=== PATIENT | female | born 1950 | race Caucasian/White ===

== ENCOUNTER 2021-03-28 08:02 | Outpatient (CLI) | payer BC | END 2021-03-28 08:03 | disposition critical access hospital (66) | LOC: EMS 08:02 | DX: R55 Syncope and collapse (principal) | CPT/HCPCS: A0425; A0427 ==

== ENCOUNTER 2021-03-28 08:03 | Emergency (ER) | payer BC ==
[2021-03-28] MEDS ORDERED: SODIUM CHLORIDE 0.9% 1,000 ML IV STA (08:18)
--- NOTE | 2021-03-28 08:20 | ED Physician Documentation ---
PD HPI SYNCOPE - Stated complaint Stated Complaint: GLF - History obtained from History obtained from: Patient, Family ( gave info through EMS.), EMS - History of Present Illness Witnessed: Witnessed (patient felt okay getting up this morning and went to bathroom. She got lightheaded when standing up, with nausea, and fainted, falling face downward. Out for about 20 seconds, per report to EMS. Then awake and back to baseline alertness. No focal weakness. No chest pain.) Timing - onset: How many minutes ago (30), Today Duration: Seconds (20) Preceding symptoms: Nausea / vomiting (nausea without vomiting.), Light headed, Other (has had some diarrhea for about 2 weeks since starting Tumeric and restartin Zoloft. Has tapered but persisted loose to watery. No melena. She states she did not feel "quite right" last evening, with just some malaise.). No: Headache, Chest pain Associated symptoms: No: Headache, Abdominal pain Contributing factors: Just stood up (from toilet) Injury occurred: Head injury (right cheek tender). No: Neck injury, Bit tongue Treatment [employer]: Fluids Similar symptoms before: Has not had sx before Recently seen: Not recently seen Review of Systems Constitutional: denies: Fever, Chills Nose: denies: Rhinorrhea / runny nose, Congestion Throat: denies: Sore throat Cardiac: denies: Chest pain / pressure Respiratory: denies: Cough GI: reports: Diarrhea (for 2 weeks). denies: Abdominal Pain, Nausea, Vomiting, Bloody / black stool Skin: denies: Abrasion (s), Laceration (s) Neurologic: denies: Generalized weakness, Focal weakness, Numbness PD PAST MEDICAL HISTORY - Past Medical History Cardiovascular: None Respiratory: None Neuro: None Endocrine/Autoimmune: None - Present Medications Home Medications: Ambulatory Orders Medication Instructions Recorded Confirmed L.acid/L.casei/B.bif/B.nish/Fos 1 each PO BID 7 Days #14 cap 03/28/21 [Probiotic Blend Capsule] Loperamide [Imodium] 2 mg PO QID PRN #16 cap 03/28/21 Sertraline [Zoloft] 25 mg PO DAILY 03/28/21 03/28/21 - Allergies Allergies/Adverse Reactions: Allergies Allergy/AdvReac Type Severity Reaction Status Date / Time No Known Drug Allergies Allergy Verified 03/28/21 08:19 - Living Situation Living Situation: reports: With spouse/s.o. Living Arrangement: reports: At home (recently moved to [facility] in past couple months. ) - Social History Does the pt smoke?: No Does the pt drink ETOH?: No Does the pt have substance abuse?: No - Family History Family history: reports: CAD. denies: Sudden PD ED PE NORMAL - Vitals Vital signs reviewed: Yes - General General: Alert and oriented X 3, No acute distress, Well developed/nourished - HEENT HEENT: PERRL, EOMI, Moist mucous membranes, Pharynx benign, Other (right cheek with mild redness but no deformity. Normal smile and mouth opening/closing. ) - Neck Neck: Supple, no meningeal sign, No bony TTP, No adenopathy - Cardiac Cardiac: RRR, No murmur - Respiratory Respiratory: Clear bilaterally - Abdomen Abdomen: Normal bowel sounds, Soft, Non tender - Derm Derm: Normal color, Warm and dry - Extremities Extremities: No tenderness to palpate, Normal ROM s pain, No edema, No calf tenderness / cord - Neuro Neuro: Alert and oriented X 3, No motor deficit, No sensory deficit, Normal speech Eye Opening: Spontaneous Motor: Obeys Commands Verbal: Oriented GCS Score: 15 - Psych Psych: Normal mood, Normal affect Results - Vitals Vitals: Vital Signs - 24 hr 03/28/21 03/28/21 03/28/21 08:05 08:51 09:21 Temperature 36.9 C Heart Rate 59 L 61 60 Respiratory 18 13 14 Rate Blood Pressure 111/80 166/71 H 168/70 H O2 Saturation 97 98 99 03/28/21 03/28/21 09:30 10:00 Temperature Heart Rate 61 62 Respiratory 18 17 Rate Blood Pressure 168/68 H 165/69 H O2 Saturation 98 99 Oxygen O2 Source Room air - EKG (time done) 08:19 Rate: Rate (enter#) (59) Rhythm: NSR Rudolph: Normal Intervals: Normal MS QRS: Normal Ischemia: Normal ST segments. No: ST elevation c/w ischemia, ST depression Compare to prior EKG: Old EKG unavailable Computer interpretation: Agree with computer - Labs Labs: Laboratory Tests 03/28/21 03/28/21 03/28/21 08:42 08:42 08:42 WBC 8.7 RBC 3.73 L Hgb 11.8 L Hct 35.4 L MCV 94.9 MCH 31.6 H MCHC 33.3 RDW 12.4 Plt Count 207 MPV 9.6 Neut # (Auto) 7.0 H Lymph # (Auto) 0.9 L Glynn # (Auto) 0.6 Eos # (Auto) 0.2 Baso # (Auto) 0.0 Absolute Nucleated RBC 0.00 Nucleated RBC % 0.0 Manual Slide Review Indicated RBC Morph Micro Appear 2+ ANISOCYTOSIS Sodium 137 Potassium 3.7 Chloride 106 Carbon Dioxide 25 Anion Gap 6.0 BUN 12 Creatinine 0.7 Estimated GFR (MDRD) 82 L Glucose 104 H Calcium 8.1 L Magnesium 2.0 Total Bilirubin 0.7 AST 19 ALT 16 Alkaline Phosphatase 40 L Troponin I High Sens 8.2 Total Protein 6.0 L Albumin 3.5 Globulin 2.5 Albumin/Globulin Ratio 1.4 Lipase 27 Stl C. diff Tox B Gene 03/28/21 09:18 WBC RBC Hgb Hct MCV MCH MCHC RDW Plt Count MPV Neut # (Auto) Lymph # (Auto) Glynn # (Auto) Eos # (Auto) Baso # (Auto) Absolute Nucleated RBC Nucleated RBC % Manual Slide Review RBC Morph Micro Appear Sodium Potassium Chloride Carbon Dioxide Anion Gap BUN Creatinine Estimated GFR (MDRD) Glucose Calcium Magnesium Total Bilirubin AST ALT Alkaline Phosphatase Troponin I High Sens Total Protein Albumin Globulin Albumin/Globulin Ratio Lipase Stl C. diff Tox B Gene NEGATIVE PD MEDICAL DECISION MAKING - ED course Complexity details: considered differential (seems postural syncope. NOrmal appearing now. ), d/w patient Departure - Departure Disposition: 01 Home, Self Care Clinical Impression: Postural syncope, Acute diarrhea Condition: Stable Record reviewed to determine appropriate education?: Yes Instructions: ED Syncope Vasovagal Prescriptions: Loperamide [Imodium] 2 mg PO QID PRN #16 cap PRN Reason: Diarrhea L.acid/L.casei/B.bif/B.nish/Fos [Probiotic Blend Capsule] 1 each PO BID 7 Days #14 cap Comments: For now I would have you stop the turmeric if this is causing some of the diarrhea/intestinal irritation. Stay well-hydrated. Consider Imodium antidiarrhea medicine 4 times a day if needed for diarrhea and also adding a probiotic twice daily for a week. These are both available potentially prescription but also [id number]. Discussed with the pharmacist. Your EKG, heart rhythm, blood tests electrolytes and a blood test to look for signs of heart attack are all normal. No signs of more significant cause of the fainting. Presume it was a transient drop in blood pressure with the position change and may relate to some under hydration. Follow-up if repetitive symptoms or episodes. We are doing a stool culture to look for infectious causes of your diarrhea. This should result in a day or 2 and will call you if we need to add particular treatment. Discharge Date/Time: 03/28/21 10:34
[2021-03-28 08:55] LABS: BASOPHILS % (AUTO) 0.5 %; EOSINOPHILS # (AUTO) 0.2 10^3/uL (0.0-0.7); EOSINOPHILS % (AUTO) 1.9 %; HCT - HEMATOCRIT 35.4 % (37.0-47.0); HGB - HEMOGLOBIN 11.8 g/dL (12.0-16.0); LYMPHOCYTES # (AUTO) 0.9 10^3/uL (1.5-3.5); LYMPHOCYTES % (AUTO) 10.4 %; MEAN CORPUSCULAR HEMOGLOBIN 31.6 pg (27.0-31.0); MEAN CORPUSCULAR HGB CONC 33.3 g/dL (32.0-36.0); MEAN CORPUSCULAR VOLUME 94.9 fL (81.0-99.0); MEAN PLATELET VOLUME 9.6 fL (7.9-10.8); MONOCYTES # (AUTO) 0.6 10^3/uL (0.0-1.0); MONOCYTES % (AUTO) 7.1 %; NEUTROPHILS % (AUTO) 79.9 %; PLT - PLATELET COUNT 207 10^3/uL (130-450); RED BLOOD COUNT 3.73 10^6/uL (4.20-5.40); RED CELL DISTRIBUTION WIDTH 12.4 % (12.0-15.0); WHITE BLOOD COUNT 8.7 x10^3/uL (4.8-10.8)
[2021-03-28 09:02] LABS: SLIDE REVIEW? Indicated
[2021-03-28 09:08] LABS: ALBUMIN 3.5 g/dL (3.2-5.5); ALBUMIN/GLOBULIN RATIO 1.4 (1.0-2.2); BILIRUBIN,TOTAL 0.7 mg/dL (0.2-1.0); CALCIUM 8.1 mg/dL (8.5-10.3); CREATININE 0.7 mg/dL (0.4-1.0); POTASSIUM 3.7 mmol/L (3.5-5.0)
[2021-03-28 09:24] LABS: RBC MORPHOLOGY (MULTIPLE) 2+ ANISOCYTOSIS (NORMAL)
[2021-03-28 10:03] VITALS: BP 165/69
[2021-03-28] MEDS ORDERED: DIPHENOX/ATROPINE 2.5/0.025 MG TABLET PO STA (10:17)
== END 2021-03-28 10:34 | disposition home or self-care (01) ==
LOC: ED 08:03
DX: R55 Syncope and collapse (principal); R19.7 Diarrhea, unspecified
CPT/HCPCS: 36415; 80053; 81599; 83690; 83735; 84484; 85025; 87493; 93005; 99282; 99284; A9270; 87045; 87046

== ENCOUNTER 2021-06-09 08:39 | Outpatient (CLI) | payer BC ==
--- NOTE | 2021-06-18 09:48 | Mammography Report ---
BILATERAL DIGITAL SCREENING MAMMOGRAM 3D/2D: 06/09/2021 CLINICAL: Routine screening. No prior exams were available for comparison. There are scattered fibroglandular elements in both br easts. No significant masses, calcifications, or other findings are seen in either breast. IMPRESSION: NEGATIVE There is no mammographic evidence of malignancy. A 1 year screening mammogram is recommended. This exam was interpreted at Station ID: [id number]. NOTE: For mammograms, a report in lay terms will be sent to the patient. Approximately 15% of breast malignancies will not be visualized mammographically. In the management of a palpable breast mass, a negative mammogram must not discourage biopsy of a clinically suspicious lesion. Electronically Signed By: Tyrell holloway/penrad:06/18/2021 08:44:16 ACR BI-RADS Category 1: Negative 3341F PARENCHYMAL PATTERN: (A) - The breast(s) demonstrate(s) scattered fibroglandular densities. BI-RADS CATEGORY: (1) - 1 RECOMMENDATION: (ANNUAL) - Recommend routine annual screening mammography. [id number] 1 year screening LATERALITY: (B)
== END 2021-06-09 08:40 | disposition home or self-care (01) ==
LOC: DI.N 08:39
PROVIDERS: ATTEND Internal Medicine
DX: Z12.31 Encounter for screening mammogram for malignant neoplasm of breast (principal)

== ENCOUNTER 2022-10-20 13:13 | Outpatient (CLI) | payer BC | END 2022-10-20 13:14 | disposition left against medical advice (07) | LOC: EMS 13:13 | DX: R55 Syncope and collapse (principal) ==

== ENCOUNTER 2022-11-17 15:17 | Outpatient (CLI) | payer BC ==
--- NOTE | 2022-11-21 07:56 | Mammography Report ---
BILATERAL DIGITAL SCREENING MAMMOGRAM 3D/2D: 11/17/2022 CLINICAL: Routine screening. Comparison is made to exam dated: 06/09/2021 mammogram - [facility]. There are scattered areas of fibroglandular density in both breasts (category b / 25%-50% glandular t issue). No significant masses, calcifications, or other findings are seen in either breast. There has been no significant interval change. IMPRESSION: NEGATIVE There is no mammographic evidence of malignancy. A 1 year screening mammogram is recommended. Based on the Tyrer Cuzick model (a risk assessment model) the patients lifetime risk is 2.7% and her 10 year risk is 2.4%. According to the ACR, ACS, and NCCN guidelines, an annual breast MRI exam palak g with mammogram is recommended if the patients lifetime risk is 20% or greater. This exam was interpreted at Station ID: [id number]. NOTE: For mammograms, a report in lay terms will be sent to the patient. Approximately 15% of breast malignancies will not be visualized mammographically. In the management of a palpable breast mass, a negative mammogram must not discourage biopsy of a clinically suspicious lesion. Electronically Signed By: Bonnie otero/dwain:11/18/2022 15:10:01 letter sent: No_Letter ACR BI-RADS Category 1: Negative 3341F PARENCHYMAL PATTERN: (A) - The breast(s) demonstrate(s) scattered fibroglandular densities. BI-RADS CATEGORY: (1) - 1 Mammogram [id number] 1 year screening LATERALITY: (B)
== END 2022-11-17 15:18 | disposition home or self-care (01) ==
LOC: DI 15:17
PROVIDERS: ATTEND Registered Nurse
DX: Z12.31 Encounter for screening mammogram for malignant neoplasm of breast (principal); R92.323 Mammographic fibroglandular density, bilateral breasts

== ENCOUNTER 2023-02-17 15:24 | Outpatient (CLI) | payer BC ==
--- NOTE | 2023-02-17 16:00 | DEXA Report ---
PROCEDURE: Dexa Spine and/or Hip INDICATIONS: OSTEOPOROSIS TECHNIQUE: Dual energy x-ray absorptiometry (DXA) was performed on a [employer] System. Regions measur ed are the AP Spine, femoral neck, and if needed forearm. COMPARISON: None FINDINGS: Lumbar Spine: Bone Mineral Density 0.877 g/cm/cm,T score -2.5. Left Femoral Neck: Bone Mineral Density 0.717 g/cm/cm, T score -2.3. Left Hip: Bone Mineral Density 0.793 g/cm/cm,T score -1.7. (T score greater or equal to -1.0: NORMAL) (T score from -1.1 to -2.4: OSTEOPENIA) (T score less than or equal to -2.5 to: OSTEOPOROSIS) Impression: By WHO criteria, this patient has osteoporosis within the lumbar spine and significant osteopenia wit hin the hip especially the femoral neck. Patients with diagnosis of osteoporosis or osteopenia should have regular bone mineral density assess ment. For those eligible for Medicare, routine testing is allowed once every 2 years. Testing frequ ency can be increased for patients who have rapidly progressing disease or for those who are receivin g medical therapy to restore bone mass. Reviewed by: Susana Vail MD on 02/17/2023 3:59 PM PST Approved by: Susana Vail MD on 02/17/2023 3:59 PM PST Station ID: [id number]
== END 2023-02-17 15:25 | disposition home or self-care (01) ==
LOC: DI 15:24
PROVIDERS: ATTEND Nurse Practitioner Family
DX: M81.0 Age-related osteoporosis without current pathological fracture (principal)

== ENCOUNTER 2023-03-03 10:20 | Outpatient (CLI) | payer BC ==
--- NOTE | 2023-03-03 12:37 | XRAY Report ---
PROCEDURE: Thoracic Spine 3V INDICATIONS: THORACIC PAIN TECHNIQUE: 3 views of the thoracic spine were acquired. COMPARISON: None. FINDINGS: Bones: Mild kyphotic deformity of the thoracic spine is noted. No fractures or dislocations can be i dentified on the provided images. Soft tissues: Visualized soft tissues appear unremarkable. IMPRESSION: No acute findings Mild kyphotic deformity of the thoracic spine Reviewed by: Pedro Dhillon MD on 03/03/2023 12:36 PM PST Approved by: Pedro Dhillon MD on 03/03/2023 12:36 PM PST Station ID: [id number]
== END 2023-03-03 10:21 | disposition home or self-care (01) ==
LOC: DI 10:20
PROVIDERS: ATTEND Nurse Practitioner Family
DX: M54.6 Pain in thoracic spine (principal)